=== PATIENT | female | born 1960 | race American Indian/Alaskan Native ===

== ENCOUNTER 2019-03-12 11:58 | Outpatient (CLI) | payer MEDICARE, OTHER ==
[2019-03-12 12:38] LABS: Hematocrit 36.3 % (30.3-42.9); Hemoglobin 12.8 gm/dl (10.1-14.3); Mean Corpuscular HGB Conc 35 % (30-34); Mean Corpuscular Volume 87 fl (79-97); Platelet Count 167 K/mm3 (140-440); Red Blood Count 4.18 M/mm3 (3.65-5.03); Red Cell Distribution Width 14.4 % (13.2-15.2)
[2019-03-12 12:57] LABS: Alanine Aminotransferase 12 units/L (7-56); Albumin 4.2 g/dL (3.9-5); BUN/Creatinine Ratio 22; Blood Urea Nitrogen 13 mg/dL (7-17); Calcium 8.9 mg/dL (8.4-10.2); Hemolysis Index 0
[2019-03-12 12:59] LABS: Erythrocyte Sedimentation Rate 4 mm/Hr (0-20)
[2019-03-17 20:53] LABS: Vitamin D, 25-OH, D2 <4 ng/mL
== END 2019-03-12 11:59 | disposition home or self-care (01) ==
LOC: LAB 11:58
PROVIDERS: ATTEND Specialist
DX: G93.41 Metabolic encephalopathy (principal); I10 Essential (primary) hypertension; Z90.710 Acquired absence of both cervix and uterus; Z79.899 Other long term (current) drug therapy
CPT/HCPCS: 36415; 80053; 82306; 82607; 83036; 83921; 84443; 85027; 85652; 86592